=== PATIENT | male | born 1985 | race Caucasian/White ===

== ENCOUNTER 2023-05-28 11:41 | Outpatient (CLI) | payer OTHER, SELFPAY ==
--- NOTE | 2023-05-28 11:51 | XR_ITS ---
WS: [id number] Exam: XR lumbar spine 6V w [id number]/e [id number] Date/Time of Exam: 05/28/2023 12:08 PM Reason For Exam: BACK PAIN, LOW No acute fracture or dislocation. The spaces are relatively well-maintained. Mild spondylosis. No fle xion or extension instability. Posterior elements are intact as visualized. Slight levoscoliosis. IMPRESSION: 1. No fracture or malalignment. No flexion or extension instability. 2. Slight levoscoliosis.
== END 2023-05-28 11:42 | disposition home or self-care (01) ==
PROVIDERS: PCP Family Medicine; Visit Provider Family Medicine
DX: M54.50 Low back pain, unspecified (principal); M41.86 Other forms of scoliosis, lumbar region
CPT/HCPCS: 72114

== ENCOUNTER 2023-07-11 10:24 | Outpatient (RCR) | payer OTHER, SELFPAY | END 2023-08-04 23:59 | disposition home or self-care (01) | LOC: SPT 10:24 | PROVIDERS: PCP Family Medicine; Visit Provider Family Medicine | DX: M54.9 Dorsalgia, unspecified (principal); G89.29 Other chronic pain | CPT/HCPCS: 97110; 97161 ==

== ENCOUNTER 2023-07-15 14:30 | Outpatient (CLI) | payer OTHER, SELFPAY | END 2023-07-15 14:31 | disposition home or self-care (01) | LOC: SLEEP 07-16 13:57 | PROVIDERS: PCP Family Medicine; Visit Provider Family Medicine | DX: G47.33 Obstructive sleep apnea (adult) (pediatric) (principal); G47.19 Other hypersomnia | CPT/HCPCS: G0399 ==

== ENCOUNTER 2023-08-05 06:00 | Outpatient (RCR) | payer OTHER, SELFPAY | END 2023-09-04 23:59 | disposition home or self-care (01) | LOC: SPT 06:00 | PROVIDERS: PCP Family Medicine; Visit Provider Family Medicine | DX: M54.9 Dorsalgia, unspecified (principal); G89.29 Other chronic pain | CPT/HCPCS: 97110 ==

== ENCOUNTER 2023-09-05 06:00 | Outpatient (RCR) | payer OTHER, SELFPAY | END 2023-10-03 23:59 | disposition home or self-care (01) | LOC: SPT 06:00 | PROVIDERS: PCP Family Medicine; Visit Provider Family Medicine | DX: M54.9 Dorsalgia, unspecified (principal); G89.29 Other chronic pain | CPT/HCPCS: 97110 ==

== ENCOUNTER 2025-04-15 06:27 | Outpatient (CLI) | payer SELFPAY ==
[2025-04-15 07:10] LABS: HF Add Manual Diff No
[2025-04-15 07:35] LABS: Hematocrit 46.6 % (37-53); Hemoglobin 15.60 g/dL (11.27-16.99); Mean Corpuscular HGB Conc 33.5 g/dL (30-55); Mean Corpuscular Hemoglobin 29.4 pg (27-33); Mean Corpuscular Volume 87.9 fl (82-101); Nucleated Red Blood Cells % 0 %; Platelet Count 324 10^3/cmm (157-399); Red Blood Count 5.30 10^6/uL (3.85-5.65); White Blood Count 13.22 10^3/uL (3.29-11.43)
[2025-04-15 07:46] LABS: Chloride 100 mmol/L (98-107); Potassium 4.4 mmol/L (3.5-5.1)
[2025-04-15 08:02] LABS: Estmated Average Glucose 126; Hemoglobin A1C 6.0 % (4.0-6.0)
[2025-04-15 08:50] LABS: Alanine Aminotransferase 44 U/L (0-41); Albumin Level 4.4 g/dL (3.5-5.2); Alkaline Phosphatase 69 U/L (40-130); Aspartate Amino Transferase 24 U/L (0-40); Blood Urea Nitrogen 20 mg/dL (6-20); Calcium 9.3 mg/dL (8.5-10.5); Carbon Dioxide 24 mmol/L (22-29); Cholesterol 216 mg/dL (0-200); Globulin 2.6 g/dL (1.3-4.6); Glucose 105 mg/dL (65-115); HDL Cholesterol 40 mg/dL (60-100); Total Protein 7.0 g/dL (6.6-8.7); Triglycerides 323 mg/dL (0-150)
[2025-04-15 08:59] LABS: Anion Gap 15.4 (5-19); Osmolality Calculated 283 mOsm/kg (285-295); Sodium 135 mmol/L (136-145)
== END 2025-04-15 06:28 | disposition home or self-care (01) ==
LOC: LAB 06:29
PROVIDERS: Visit Provider Dermatology
DX: Z01.89 Encounter for other specified special examinations (principal)